=== PATIENT | male | born 1940 | race Caucasian/White ===

== ENCOUNTER 2021-03-02 18:25 | Observation (INO) ==
[2021-03-02] MEDS ORDERED: 0.9 % Sodium Chloride 1,000 ML IVC ONE ×2 (20:17→21:27)
[2021-03-02 20:29] LABS: Bilirubin,Urine Negative (Negative); Blood,Urine Negative (Negative); Clarity,Urine Clear (Clear); Color,Urine Light-Yellow (Yellow); Glucose,Urine (UA) Normal (Normal); Hyaline Casts,Urine Few per lpf (None Seen); Ketones,Urine Negative (Negative); Leukocyte Esterase,Urine Trace (Negative); Mucus,Urine Few per lpf (None-Few); Nitrite,Urine Negative (Negative); PH,Urine 5.5 pH Units (5.0-8.0); Protein,Urine Trace mg/dL (Neg-Trace); RBC,Urine 0-3 per hpf (0-3); Specific Gravity,Urine 1.017 (1.010-1.025); Squamous Epithelial Cell,Urine Few per hpf (None-Few); Urobilinogen,Urine Normal (Normal); WBC,Urine 0-3 per hpf (0-3)
[2021-03-02 20:29] LABS: Basophils % 0.6 %; Eosinophils # 0.4 K/mcL (0.0-0.6); Eosinophils % 6.9 %; Hematocrit 32.3 % (37.5-50.1); Hemoglobin 10.9 g/dL (12.9-16.9); Immature Granulocytes % 0.2 % (0-4); Lymphocytes # 0.9 K/mcL (0.6-4.6); Lymphocytes % 16.9 %; Mean Corpuscular HGB Conc 33.7 g/dL (31.6-35.5); Mean Corpuscular Hemoglobin 32.2 pg (28.0-33.3); Mean Corpuscular Volume 95.6 fL (83.0-100.0); Monocytes # 0.5 K/mcL (0.0-1.3); Monocytes % 10.2 %; Neutrophils # 3.3 K/mcL (1.6-8.9); Platelet Count 160 K/mcL (140-400); Red Blood Count 3.38 M/mcL (4.19-5.50); Red Cell Distribution Width 12.6 % (11.5-14.5); Segmented Neutrophils % 65.2 %; White Blood Count 5.1 K/mcL (4.3-11.1)
[2021-03-02 20:38] LABS: Albumin 3.9 g/dL (3.5-5.7); Albumin/Globulin Ratio 1.4 (1.1-2.2); Bilirubin,Direct 0.1 mg/dL (0.0-0.2); Bilirubin,Indirect 0.5 mg/dL (0.0-1.0); Bilirubin,Total 0.6 mg/dL (0.3-1.0); Calcium 8.7 mg/dL (8.6-10.3); Globulin 2.8 g/dL (2.4-3.5); Magnesium 2.2 mg/dL (1.6-2.6); Potassium 4.6 mEq/L (3.5-5.1); Total Protein 6.7 g/dL (6.4-8.9)
[2021-03-02] MEDS ORDERED: Melatonin 3 MG TABLET PO PRN (22:54)
[2021-03-02] MEDS ORDERED: Acetaminophen 325 MG TABLET PO PRN (22:54)
[2021-03-02] MEDS ORDERED: Naloxone 0.4 MG/ML INJ IVP PRN (22:54)
[2021-03-02] MEDS ORDERED: Ondansetron 4 MG/2 ML VIAL IVP PRN (22:54)
[2021-03-03] MEDS ORDERED: 0.9 % Sodium Chloride 1,000 ML IVC ONE (00:30)
[2021-03-03] MEDS ORDERED: Dextrose Gel 15 GM/37.5 ML TUBE PO PRN ×2 (00:59)
[2021-03-03] MEDS ORDERED: *HR* Dextrose 50 % in Water (Vial) 50 ML VIAL IVP PRN (00:59)
[2021-03-03] MEDS ORDERED: D5% in Water 1,000 ML IVC PRN (00:59)
[2021-03-03 05:29] LABS: Basophils % 0.5 %; Eosinophils # 0.4 K/mcL (0.0-0.6); Eosinophils % 10.9 %; Hematocrit 31.1 % (37.5-50.1); Hemoglobin 10.6 g/dL (12.9-16.9); Lymphocytes # 0.9 K/mcL (0.6-4.6); Lymphocytes % 23.5 %; Mean Corpuscular HGB Conc 34.1 g/dL (31.6-35.5); Mean Corpuscular Hemoglobin 32.7 pg (28.0-33.3); Mean Platelet Volume 8.8 fL (9.4-12.4); Monocytes # 0.4 K/mcL (0.0-1.3); Monocytes % 11.1 %; Neutrophils # 2.1 K/mcL (1.6-8.9); Platelet Count 139 K/mcL (140-400); Red Blood Count 3.24 M/mcL (4.19-5.50); Red Cell Distribution Width 12.4 % (11.5-14.5); White Blood Count 3.9 K/mcL (4.3-11.1)
[2021-03-03 05:48] LABS: Albumin 3.5 g/dL (3.5-5.7); Albumin/Globulin Ratio 1.4 (1.1-2.2); Bilirubin,Total 0.6 mg/dL (0.3-1.0); Calcium 8.1 mg/dL (8.6-10.3); Globulin 2.5 g/dL (2.4-3.5); Phosphorous 3.2 mg/dL (2.7-4.5); Potassium 4.4 mEq/L (3.5-5.1)
[2021-03-03] MEDS: Insulin LISPRO 300 UNITS/3 ML VIAL SUBQ SCH ×2 (07:43→12:31)
[2021-03-03 15:17] VITALS: BP 135/64
[2021-03-03 15:42] LABS: Calcium 8.6 mg/dL (8.6-10.3); Potassium 4.7 mEq/L (3.5-5.1)
[2021-03-03] MEDS ORDERED: Insulin LISPRO 300 UNITS/3 ML VIAL SUBQ SCH (21:00)
== END 2021-03-03 17:13 | disposition home or self-care (01) ==
LOC: EMEROOARM 18:25 → 3BNU 18:25 → SUATTDRO 21:50 → 3BNU 22:25
PROVIDERS: ADMIT Family Medicine; ATTEND Registered Nurse

== ENCOUNTER 2022-03-08 14:25 | Inpatient (IN) ==
[2022-03-08 15:08] LABS: Basophils % 0.4 %; Eosinophils # 0.1 K/mcL (0.0-0.6); Eosinophils % 2.4 %; Hemoglobin 11.6 g/dL (12.9-16.9); Immature Granulocytes % 0.2 % (0-4); Lymphocytes # 0.9 K/mcL (0.6-4.6); Lymphocytes % 17.1 %; Mean Corpuscular HGB Conc 33.1 g/dL (31.6-35.5); Mean Corpuscular Volume 99.7 fL (83.0-100.0); Mean Platelet Volume 9.1 fL (9.4-12.4); Monocytes # 0.3 K/mcL (0.0-1.3); Monocytes % 6.2 %; Neutrophils # 3.7 K/mcL (1.6-8.9); Platelet Count 150 K/mcL (140-400); Red Blood Count 3.51 M/mcL (4.19-5.50); Segmented Neutrophils % 73.7 %
[2022-03-08 15:33] LABS: Albumin/Globulin Ratio 1.5 (1.1-2.2); Bilirubin,Total 0.8 mg/dL (0.3-1.0); Calcium 8.8 mg/dL (8.6-10.3); Globulin 2.7 g/dL (2.4-3.5); Magnesium 2.2 mg/dL (1.6-2.6); Potassium 4.2 mEq/L (3.5-5.1); Total Protein 6.7 g/dL (6.4-8.9); Troponin I 0.03 ng/mL (< 0.04)
[2022-03-08] MEDS ORDERED: Naloxone 0.4 MG/ML INJ IVP PRN (17:28)
[2022-03-08] MEDS ORDERED: Acetaminophen 325 MG TABLET PO PRN (17:28)
[2022-03-08] MEDS ORDERED: Melatonin 3 MG TABLET PO PRN (17:28)
[2022-03-08] MEDS ORDERED: Perflutren Lipid Microsphere 1.3 ML in 0.9 % Sodium Chloride 8.7 ML IVP PRN (18:37)
[2022-03-08] MEDS ORDERED: Furosemide 20 MG TABLET PO SCH (18:45)
[2022-03-08] MEDS: *HR* Heparin 5,000 UNIT/ML VIAL SQ SCH (21:09)
[2022-03-08] MEDS: Insulin DETEMIR 100 UNIT/ML X5UNITS SUBQ SCH (21:10)
[2022-03-08] MEDS: Latanoprost 2.5 ML BOTTLE BOTH EYES SCH (21:16)
[2022-03-08] MEDS: PREDNISOLONE ACETATE 0.12% RIGHT EYE SCH (21:16)
[2022-03-09 03:26] LABS: Basophils % 0.4 %; Eosinophils # 0.2 K/mcL (0.0-0.6); Eosinophils % 3.1 %; Hematocrit 32.9 % (37.5-50.1); Hemoglobin 10.8 g/dL (12.9-16.9); Lymphocytes # 0.9 K/mcL (0.6-4.6); Lymphocytes % 17.5 %; Mean Corpuscular HGB Conc 32.8 g/dL (31.6-35.5); Mean Corpuscular Hemoglobin 32.6 pg (28.0-33.3); Mean Corpuscular Volume 99.4 fL (83.0-100.0); Mean Platelet Volume 9.3 fL (9.4-12.4); Monocytes # 0.4 K/mcL (0.0-1.3); Monocytes % 8.2 %; Neutrophils # 3.4 K/mcL (1.6-8.9); Platelet Count 155 K/mcL (140-400); Red Blood Count 3.31 M/mcL (4.19-5.50); Segmented Neutrophils % 70.8 %; White Blood Count 4.9 K/mcL (4.3-11.1)
[2022-03-09 03:40] LABS: Calcium 8.7 mg/dL (8.6-10.3); Magnesium 1.9 mg/dL (1.6-2.6); Phosphorous 3.3 mg/dL (2.7-4.5); Potassium 4.1 mEq/L (3.5-5.1)
[2022-03-09] MEDS ORDERED: Magnesium Sulfate 1 GM/102 ML PIGGYBACK IVPB ONE (03:59)
[2022-03-09] MEDS: *HR* Heparin 5,000 UNIT/ML VIAL SQ SCH ×3 (04:35→21:25)
[2022-03-09] MEDS: Insulin LISPRO 300 UNITS/3 ML VIAL SUBQ SCH ×2 (07:48→18:35)
[2022-03-09] MEDS: Aspirin Enteric Coated 81 MG Tablet PO SCH (08:50)
[2022-03-09] MEDS: PREDNISOLONE ACETATE 0.12% RIGHT EYE SCH ×4 (10:00→21:24)
[2022-03-09] MEDS ORDERED: Dorzolamide OPTH 10 ML BOTTLE RIGHT EYE SCH (15:00)
[2022-03-09] MEDS ORDERED: 0.9 % Sodium Chloride 500 ML ONE (15:14)
[2022-03-09] MEDS ORDERED: 0.9 % Sodium Chloride 1,000 ML ONE (15:38)
[2022-03-09] MEDS ORDERED: *HR* Midazolam HCl 2 MG/2 ML VIAL ONE (15:41)
[2022-03-09] MEDS ORDERED: *HR* FentaNYL (PF) 100 MCG/2 ML VIAL ONE (15:41)
[2022-03-09 17:10] LABS: INR 1.1; Prothrombin Time 12.5 Seconds (9.4-12.1)
[2022-03-09 17:13] LABS: Activated Partial Thrombo Time 22.8 Seconds (26.0-36.0)
[2022-03-09] MEDS: Artificial Tears SOLN 15 ML BOTTLE BOTH EYES SCH ×2 (18:35→21:23)
[2022-03-09] MEDS: Insulin DETEMIR 100 UNIT/ML X5UNITS SUBQ SCH (21:22)
[2022-03-09] MEDS: Patient Taking Own Medication 1 EACH OP SCH (21:22)
[2022-03-09] MEDS: Latanoprost 2.5 ML BOTTLE BOTH EYES SCH (21:24)
[2022-03-10 01:13] LABS: Hematocrit 31.4 % (37.5-50.1); Hemoglobin 10.8 g/dL (12.9-16.9); Mean Corpuscular HGB Conc 34.4 g/dL (31.6-35.5); Mean Corpuscular Hemoglobin 33.5 pg (28.0-33.3); Mean Corpuscular Volume 97.5 fL (83.0-100.0); Mean Platelet Volume 9.2 fL (9.4-12.4); Platelet Count 147 K/mcL (140-400); Red Blood Count 3.22 M/mcL (4.19-5.50); Red Cell Distribution Width 12.1 % (11.5-14.5); White Blood Count 5.1 K/mcL (4.3-11.1)
[2022-03-10 01:31] LABS: Calcium 8.5 mg/dL (8.6-10.3)
[2022-03-10 02:59] LABS: Estimated Average Glucose 163 mg/dl; Hemoglobin A1C 7.3 %
[2022-03-10] MEDS: *HR* Heparin 5,000 UNIT/ML VIAL SQ SCH (06:17)
[2022-03-10 06:53] VITALS: BP 151/56; PULSE 62; TEMP 98.1; O2SAT 95
[2022-03-10] MEDS: Aspirin Enteric Coated 81 MG Tablet PO SCH (07:42)
[2022-03-10] MEDS: Artificial Tears SOLN 15 ML BOTTLE BOTH EYES SCH (07:43)
[2022-03-10] MEDS: Patient Taking Own Medication 1 EACH OP SCH (07:43)
[2022-03-10] MEDS: PREDNISOLONE ACETATE 0.12% RIGHT EYE SCH (07:43)
[2022-03-10] MEDS: Latanoprost 2.5 ML BOTTLE BOTH EYES SCH (07:43)
[2022-03-10] MEDS: Insulin LISPRO 300 UNITS/3 ML VIAL SUBQ SCH (07:58)
== END 2022-03-10 10:55 | disposition home or self-care (01) | DRG 244 ==
LOC: EMEROOARM 14:25 → 2NNU 14:25
PROVIDERS: ADMIT Internal Medicine; ATTEND Internal Medicine

== ENCOUNTER 2022-03-25 12:47 | Inpatient (IN) ==
[2022-03-25] MEDS ORDERED: Naloxone 0.4 MG/ML INJ IVP PRN (13:38)
[2022-03-25] MEDS ORDERED: Dextrose 4 GM Chewable Tablets PO PRN ×2 (13:39)
[2022-03-25] MEDS ORDERED: D5% in Water 1,000 ML IVC PRN (13:39)
[2022-03-25] MEDS ORDERED: *HR* Dextrose 50 % in Water (Syg) 50 ML SYRINGE IVP PRN (13:39)
[2022-03-25] MEDS ORDERED: *HR* HYDROcodone/Acet 5/325 mg TABLET PO PRN (13:40)
[2022-03-25 14:57] LABS: Basophils % 0.1 %; Eosinophils % 0.1 %; Hematocrit 28.4 % (37.5-50.1); Hemoglobin 9.7 g/dL (12.9-16.9); Immature Granulocytes % 0.4 % (0-4); Lymphocytes # 0.3 K/mcL (0.6-4.6); Lymphocytes % 4.2 %; Mean Corpuscular HGB Conc 34.2 g/dL (31.6-35.5); Mean Corpuscular Hemoglobin 32.9 pg (28.0-33.3); Mean Corpuscular Volume 96.3 fL (83.0-100.0); Mean Platelet Volume 8.3 fL (9.4-12.4); Monocytes # 0.5 K/mcL (0.0-1.3); Monocytes % 6.9 %; Neutrophils # 6.1 K/mcL (1.6-8.9); Platelet Count 217 K/mcL (140-400); Red Blood Count 2.95 M/mcL (4.19-5.50); Red Cell Distribution Width 11.7 % (11.5-14.5); Segmented Neutrophils % 88.3 %; White Blood Count 6.9 K/mcL (4.3-11.1)
[2022-03-25 15:14] LABS: Albumin 3.5 g/dL (3.5-5.7); Albumin/Globulin Ratio 1.2 (1.1-2.2); Calcium 8.8 mg/dL (8.6-10.3); Magnesium 1.9 mg/dL (1.6-2.6); Phosphorous 4.1 mg/dL (2.7-4.5); Potassium 4.3 mEq/L (3.5-5.1); Total Protein 6.5 g/dL (6.4-8.9)
[2022-03-25 16:11] LABS: Bacteria,Urine Few per hpf (None-Few); Bilirubin,Urine Negative (Negative); Blood,Urine Small (Negative); Calcium Oxalate Crystals,Urine Present per hpf; Clarity,Urine Turbid (Clear); Color,Urine Yellow (Yellow); Glucose,Urine (UA) Normal (Normal); Ketones,Urine Trace mg/dL (Negative); Leukocyte Esterase,Urine Large (Negative); Mucus,Urine Few per lpf (None-Few); Nitrite,Urine Negative (Negative); PH,Urine 5.5 pH Units (5.0-8.0); Protein,Urine 70 mg/dL (Neg-Trace); Squamous Epithelial Cell,Urine Few per hpf (None-Few); Urobilinogen,Urine Normal (Normal); WBC,Urine TNTC per hpf (0-3)
[2022-03-25] MEDS: Insulin LISPRO 300 UNITS/3 ML VIAL SUBQ SCH ×2 (17:27→21:34)
[2022-03-25] MEDS: *HR* Heparin 5,000 UNIT/ML VIAL SQ SCH (17:27)
[2022-03-25] MEDS: Melatonin 3 MG TABLET PO PRN (23:17)
[2022-03-26] MEDS: *HR* Heparin 5,000 UNIT/ML VIAL SQ SCH ×2 (05:18→16:53)
[2022-03-26] MEDS ORDERED: 0.9 % Sodium Chloride 1,000 ML IVC SCH (08:15)
[2022-03-26 08:54] LABS: Basophils % 0.5 %; Eosinophils # 0.1 K/mcL (0.0-0.6); Eosinophils % 2.3 %; Hematocrit 27.3 % (37.5-50.1); Hemoglobin 9.3 g/dL (12.9-16.9); Immature Granulocytes % 0.3 % (0-4); Lymphocytes # 0.4 K/mcL (0.6-4.6); Lymphocytes % 10.2 %; Mean Corpuscular HGB Conc 34.1 g/dL (31.6-35.5); Mean Corpuscular Hemoglobin 32.4 pg (28.0-33.3); Mean Corpuscular Volume 95.1 fL (83.0-100.0); Mean Platelet Volume 8.5 fL (9.4-12.4); Monocytes # 0.5 K/mcL (0.0-1.3); Monocytes % 11.8 %; Neutrophils # 2.9 K/mcL (1.6-8.9); Platelet Count 219 K/mcL (140-400); Red Blood Count 2.87 M/mcL (4.19-5.50); Red Cell Distribution Width 11.6 % (11.5-14.5); Segmented Neutrophils % 74.9 %; White Blood Count 3.9 K/mcL (4.3-11.1)
[2022-03-26] MEDS: Cholecalciferol (D-3) 1,000 UNIT (25MCG) TABLET PO SCH (09:15)
[2022-03-26] MEDS: Aspirin Enteric Coated 81 MG Tablet PO SCH (09:15)
[2022-03-26] MEDS: cefTRIAXone 1,000 MG in 0.9 % Sodium Chloride 10 ML IVPB SCH (09:15)
[2022-03-26 09:16] LABS: Calcium 8.7 mg/dL (8.6-10.3); Phosphorous 4.1 mg/dL (2.7-4.5); Potassium 4.5 mEq/L (3.5-5.1)
[2022-03-26] MEDS: lisinopriL 20 MG TABLET PO SCH (09:16)
[2022-03-26] MEDS: Dorzolamide OPTH 10 ML BOTTLE RIGHT EYE SCH ×3 (09:21→20:56)
[2022-03-26] MEDS: Artificial Tears SOLN 15 ML BOTTLE BOTH EYES SCH ×4 (09:22→20:50)
[2022-03-26] MEDS: Insulin LISPRO 300 UNITS/3 ML VIAL SUBQ SCH ×4 (09:29→20:50)
[2022-03-26 11:35] LABS: Folate > 22.3 ng/mL (3.0-16.0); Vitamin B12 283 pg/mL (250-1100)
[2022-03-26] MEDS ORDERED: Latanoprost 2.5 ML BOTTLE BOTH EYES SCH (21:00)
[2022-03-26] MEDS ORDERED: Insulin DETEMIR 100 UNIT/ML X5UNITS SUBQ SCH (21:00)
[2022-03-26] MEDS: Melatonin 3 MG TABLET PO PRN (22:50)
[2022-03-27] MEDS: *HR* Heparin 5,000 UNIT/ML VIAL SQ SCH ×2 (05:24→16:47)
[2022-03-27] MEDS: Insulin LISPRO 300 UNITS/3 ML VIAL SUBQ SCH ×4 (08:27→21:59)
[2022-03-27] MEDS: Cholecalciferol (D-3) 1,000 UNIT (25MCG) TABLET PO SCH (08:29)
[2022-03-27] MEDS: Aspirin Enteric Coated 81 MG Tablet PO SCH (08:29)
[2022-03-27] MEDS: cefTRIAXone 1,000 MG in 0.9 % Sodium Chloride 10 ML IVPB SCH (08:30)
[2022-03-27] MEDS: lisinopriL 20 MG TABLET PO SCH (08:30)
[2022-03-27] MEDS: Dorzolamide OPTH 10 ML BOTTLE RIGHT EYE SCH ×3 (08:31→19:56)
[2022-03-27] MEDS: Artificial Tears SOLN 15 ML BOTTLE BOTH EYES SCH ×4 (08:37→19:27)
[2022-03-27] MEDS ORDERED: *HR* Rocuronium Bromide 50 MG/5 ML VIAL ONE ×2 (09:26→12:08)
[2022-03-27] MEDS ORDERED: *HR* Propofol 200 MG/20 ML VIAL IVP ONE (09:26)
[2022-03-27] MEDS ORDERED: Lidocaine -MPF 4% 5 ML AMPUL ONE (09:26)
[2022-03-27] MEDS ORDERED: Lidocaine -MPF 2% 2 ML VIAL ONE (09:26)
[2022-03-27] MEDS ORDERED: Ondansetron 4 MG/2 ML VIAL ONE (09:26)
[2022-03-27] MEDS ORDERED: Ondansetron 4 MG/2 ML VIAL IVP PRN ×2 (09:43→14:29)
[2022-03-27] MEDS ORDERED: *HR* FentaNYL (PF) 100 MCG/2 ML VIAL ONE ×2 (09:55→13:05)
[2022-03-27] MEDS ORDERED: ROPIVACAINE/PF/NS 0.25% 1 EACH SYRINGE INTRAART ONE (10:32)
[2022-03-27] MEDS ORDERED: *HR* Phenylephrine 10 MG/ML VIAL ONE (11:24)
[2022-03-27] MEDS ORDERED: Sugammadex Sodium 200 MG/2 ML VIAL IV ONE (12:38)
[2022-03-27] MEDS: *HR* FentaNYL (PF) 100 MCG/2 ML VIAL IVP PRN ×2 (13:45→14:01)
[2022-03-27] MEDS ORDERED: *HR* FentaNYL (PF) 100 MCG/2 ML VIAL IVP PRN (14:29)
[2022-03-27] MEDS ORDERED: *HR* Dextrose 50 % in Water (Syg) 50 ML SYRINGE IVP PRN (14:29)
[2022-03-27] MEDS ORDERED: D5% in Water 1,000 ML IVC PRN (14:29)
[2022-03-27] MEDS ORDERED: Naloxone 0.4 MG/ML INJ IVP PRN (14:29)
[2022-03-27] MEDS ORDERED: Dextrose 4 GM Chewable Tablets PO PRN ×2 (14:29)
[2022-03-27] MEDS: *HR* OxyCODONE Immed Rel 5 MG TABLET PO PRN ×2 (14:58→21:58)
[2022-03-27] MEDS: *HR* HYDROcodone/Acet 5/325 mg TABLET PO PRN (19:27)
[2022-03-27] MEDS: Latanoprost 2.5 ML BOTTLE BOTH EYES SCH (19:56)
[2022-03-27] MEDS ORDERED: Ondansetron 4 MG/2 ML VIAL IVP ONE (19:58)
[2022-03-27] MEDS: Melatonin 3 MG TABLET PO PRN (19:59)
[2022-03-27] MEDS: Insulin DETEMIR 100 UNIT/ML X5UNITS SUBQ SCH (20:07)
[2022-03-27] MEDS ORDERED: Insulin DETEMIR 100 UNIT/ML X5UNITS SUBQ SCH (21:00)
[2022-03-28 03:55] LABS: Basophils % 0.2 %; Eosinophils % 0.6 %; Hematocrit 25.5 % (37.5-50.1); Hemoglobin 8.7 g/dL (12.9-16.9); Immature Granulocytes % 0.4 % (0-4); Lymphocytes # 0.4 K/mcL (0.6-4.6); Lymphocytes % 9.1 %; Mean Corpuscular HGB Conc 34.1 g/dL (31.6-35.5); Mean Corpuscular Hemoglobin 32.5 pg (28.0-33.3); Mean Corpuscular Volume 95.1 fL (83.0-100.0); Mean Platelet Volume 8.6 fL (9.4-12.4); Monocytes # 0.6 K/mcL (0.0-1.3); Monocytes % 13.1 %; Neutrophils # 3.7 K/mcL (1.6-8.9); Platelet Count 223 K/mcL (140-400); Red Blood Count 2.68 M/mcL (4.19-5.50); Red Cell Distribution Width 11.6 % (11.5-14.5); Segmented Neutrophils % 76.6 %; White Blood Count 4.8 K/mcL (4.3-11.1)
[2022-03-28 04:16] LABS: Calcium 8.2 mg/dL (8.6-10.3); Potassium 4.2 mEq/L (3.5-5.1)
[2022-03-28] MEDS: *HR* Heparin 5,000 UNIT/ML VIAL SQ SCH ×2 (05:49→16:34)
[2022-03-28] MEDS: Insulin LISPRO 300 UNITS/3 ML VIAL SUBQ SCH ×4 (09:02→20:20)
[2022-03-28] MEDS: cefTRIAXone 1,000 MG in 0.9 % Sodium Chloride 10 ML IVPB SCH (09:46)
[2022-03-28] MEDS: lisinopriL 10 MG TABLET PO SCH (09:52)
[2022-03-28] MEDS: Cholecalciferol (D-3) 1,000 UNIT (25MCG) TABLET PO SCH (09:52)
[2022-03-28] MEDS: Aspirin Enteric Coated 81 MG Tablet PO SCH (09:52)
[2022-03-28] MEDS: Dorzolamide OPTH 10 ML BOTTLE RIGHT EYE SCH ×3 (10:00→20:53)
[2022-03-28] MEDS: Artificial Tears SOLN 15 ML BOTTLE BOTH EYES SCH ×4 (10:01→20:53)
[2022-03-28] MEDS: Melatonin 3 MG TABLET PO PRN (20:51)
[2022-03-28] MEDS: Insulin DETEMIR 100 UNIT/ML X5UNITS SUBQ SCH (20:51)
[2022-03-28] MEDS: Latanoprost 2.5 ML BOTTLE BOTH EYES SCH (20:54)
[2022-03-29 01:15] LABS: Basophils % 0.4 %; Eosinophils # 0.1 K/mcL (0.0-0.6); Eosinophils % 1.5 %; Hematocrit 26.1 % (37.5-50.1); Immature Granulocytes % 0.4 % (0-4); Lymphocytes # 0.6 K/mcL (0.6-4.6); Lymphocytes % 13.6 %; Mean Corpuscular HGB Conc 34.5 g/dL (31.6-35.5); Mean Corpuscular Hemoglobin 32.3 pg (28.0-33.3); Mean Corpuscular Volume 93.5 fL (83.0-100.0); Mean Platelet Volume 8.4 fL (9.4-12.4); Monocytes # 0.6 K/mcL (0.0-1.3); Monocytes % 12.5 %; Neutrophils # 3.3 K/mcL (1.6-8.9); Platelet Count 231 K/mcL (140-400); Red Blood Count 2.79 M/mcL (4.19-5.50); Red Cell Distribution Width 11.6 % (11.5-14.5); Segmented Neutrophils % 71.6 %; White Blood Count 4.6 K/mcL (4.3-11.1)
[2022-03-29 01:27] LABS: BUN/Creatinine Ratio 17 (6-26); Blood Urea Nitrogen 22 mg/dL (8-23); Calcium 8.7 mg/dL (8.6-10.3); Carbon Dioxide 27 mEq/L (23-29); Chloride 99 mEq/L (98-107); Glucose 159 mg/dL (70-105); Osmolality,Calculated 281 (280-300); Sodium 132 mEq/L (136-145); eGFR For African Americans > 60 (> 60); eGFR For Non-African Americans 53 (> 60)
[2022-03-29] MEDS: *HR* Heparin 5,000 UNIT/ML VIAL SQ SCH ×2 (06:18→19:00)
[2022-03-29] MEDS: Aspirin Enteric Coated 81 MG Tablet PO SCH (08:15)
[2022-03-29] MEDS: lisinopriL 10 MG TABLET PO SCH (08:15)
[2022-03-29] MEDS: Insulin LISPRO 300 UNITS/3 ML VIAL SUBQ SCH ×4 (08:15→20:56)
[2022-03-29] MEDS: Cholecalciferol (D-3) 1,000 UNIT (25MCG) TABLET PO SCH (08:15)
[2022-03-29] MEDS: cefTRIAXone 1,000 MG in 0.9 % Sodium Chloride 10 ML IVPB SCH (08:17)
[2022-03-29] MEDS: Dorzolamide OPTH 10 ML BOTTLE RIGHT EYE SCH ×3 (08:19→20:53)
[2022-03-29] MEDS: Artificial Tears SOLN 15 ML BOTTLE BOTH EYES SCH ×4 (08:19→20:53)
[2022-03-29] MEDS: Latanoprost 2.5 ML BOTTLE BOTH EYES SCH (20:53)
[2022-03-29] MEDS: Insulin DETEMIR 100 UNIT/ML X5UNITS SUBQ SCH (20:54)
[2022-03-30] MEDS: *HR* HYDROcodone/Acet 5/325 mg TABLET PO PRN ×2 (01:48→19:53)
[2022-03-30] MEDS: Melatonin 3 MG TABLET PO PRN (01:48)
[2022-03-30] MEDS: *HR* Heparin 5,000 UNIT/ML VIAL SQ SCH ×2 (06:16→18:31)
[2022-03-30 06:50] LABS: BUN/Creatinine Ratio 18 (6-26); Blood Urea Nitrogen 24 mg/dL (8-23); Calcium 8.9 mg/dL (8.6-10.3); Carbon Dioxide 28 mEq/L (23-29); Chloride 100 mEq/L (98-107); Glucose 116 mg/dL (70-105); Osmolality,Calculated 281 (280-300); Potassium 4.2 mEq/L (3.5-5.1); Sodium 133 mEq/L (136-145); eGFR For African Americans > 60 (> 60); eGFR For Non-African Americans 50 (> 60)
[2022-03-30] MEDS: Insulin LISPRO 300 UNITS/3 ML VIAL SUBQ SCH ×4 (07:32→22:21)
[2022-03-30] MEDS ORDERED: cefTRIAXone 1,000 MG in 0.9 % Sodium Chloride 10 ML IVPB ONE (08:00)
[2022-03-30] MEDS: Aspirin Enteric Coated 81 MG Tablet PO SCH (08:18)
[2022-03-30] MEDS: lisinopriL 10 MG TABLET PO SCH (08:18)
[2022-03-30] MEDS: Cholecalciferol (D-3) 1,000 UNIT (25MCG) TABLET PO SCH (08:18)
[2022-03-30] MEDS: Artificial Tears SOLN 15 ML BOTTLE BOTH EYES SCH ×4 (08:18→22:20)
[2022-03-30] MEDS: Dorzolamide OPTH 10 ML BOTTLE RIGHT EYE SCH ×3 (08:19→22:19)
[2022-03-30] MEDS: Insulin DETEMIR 100 UNIT/ML X5UNITS SUBQ SCH (22:19)
[2022-03-30] MEDS: Latanoprost 2.5 ML BOTTLE BOTH EYES SCH (22:20)
[2022-03-31 01:36] LABS: BUN/Creatinine Ratio 19 (6-26); Blood Urea Nitrogen 26 mg/dL (8-23); Calcium 8.6 mg/dL (8.6-10.3); Carbon Dioxide 28 mEq/L (23-29); Chloride 99 mEq/L (98-107); Glucose 136 mg/dL (70-105); Osmolality,Calculated 283 (280-300); Potassium 4.4 mEq/L (3.5-5.1); Sodium 133 mEq/L (136-145); eGFR For African Americans > 60 (> 60); eGFR For Non-African Americans 50 (> 60)
[2022-03-31] MEDS: *HR* Heparin 5,000 UNIT/ML VIAL SQ SCH (06:54)
[2022-03-31] MEDS: Aspirin Enteric Coated 81 MG Tablet PO SCH (09:05)
[2022-03-31] MEDS: Cholecalciferol (D-3) 1,000 UNIT (25MCG) TABLET PO SCH (09:06)
[2022-03-31] MEDS: Insulin LISPRO 300 UNITS/3 ML VIAL SUBQ SCH ×3 (09:07→16:36)
[2022-03-31] MEDS: Artificial Tears SOLN 15 ML BOTTLE BOTH EYES SCH ×2 (09:08→12:18)
[2022-03-31] MEDS: Dorzolamide OPTH 10 ML BOTTLE RIGHT EYE SCH ×2 (09:08→16:33)
[2022-03-31 15:19] VITALS: BP 104/63; PULSE 69; TEMP 98.4; O2SAT 97
== END 2022-03-31 17:50 | DRG 516 ==
LOC: 3BNU → SUATTDRO 13:00 → 4WAOSI 03-26 14:21
PROVIDERS: ADMIT Internal Medicine; ATTEND Pharmacist